=== PATIENT | female | born 1970 | race Caucasian/White ===

== ENCOUNTER → 2016-08-05 | Outpatient (CLI) | payer OTHER ==
--- NOTE | 2016-08-06 13:01 | RAD ---
DATE: 08/05/2016 EXAM: DIGITAL SCREEN BILAT W/CAD HISTORY: Routine screening COMPARISON: 06/25/2015 This study was interpreted with the benefit of Computerized Aided Detection (CAD). The breast parenchyma is heterogeneously dense, which could reduce sensitivity of mammography. Breast parenchyma level C. Findings: No new or enlarging breast densities are seen. There is a cluster of microcalcifications at the 6:00 location the right breast, best seen on the current cc view. These were not evident on the previous cc views, however, that could be due to differences in patient positioning. These are partially visualized on the current oblique view. Calcifications were seen in this region on the oblique view of the 06/25/2015 study, but not on prior exams. The intermittent visualization of these calcifications is probably due to their far posterior position. IMPRESSION: Cluster of microcalcifications at the 6:00 location in the right breast as above. Diagnostic mammograms to include magnification and straight mediolateral views are suggested for optimal characterization. BI-RADS CATEGORY: 0 INCOMPLETE: NEEDS ADDITIONAL IMAGING EVALUATION AND/OR PRIOR MAMMOGRAMS FOR COMPARISON. RECOMMENDED FOLLOW-UP: ADD ADDITIONAL IMAGING PQRS compliance statement: Patient information was entered into a reminder system with a target due date for the next mammogram. Mammography is a sensitive method for finding small breast cancers, but it does not detect them all and is not a substitute for careful clinical examination. A negative mammogram does not negate a clinically suspicious finding and should not result in delay in biopsying a clinically suspicious abnormality. "Our facility is accredited by the [employer] Mammography [employer]."
== END | disposition home or self-care (01) ==
LOC: MAMMO 15:28
PROVIDERS: ATTEND Obstetrics & Gynecology
DX: Z12.31 Encounter for screening mammogram for malignant neoplasm of breast (principal)
CPT/HCPCS: G0202; 77067

== ENCOUNTER → 2016-08-18 | Outpatient (CLI) | payer OTHER ==
[~2016-08-18] MED LIST: FLUO40CA2 PO; PRAZ1CAP2 PO; QUET150T PO
--- NOTE | 2016-08-19 10:10 | RAD ---
DATE: 08/18/2016 EXAM: DIGITAL DIAGNOSTIC RT HISTORY: Microcalcifications COMPARISON: 06/25/2015 This study was interpreted with the benefit of Computerized Aided Detection (CAD ). FINDINGS: Breast Density: HETERO The breast parenchyma Is heterogeneously dense, which could reduce sensitivity of mammography. Breast parenchyma level C. Coarse microcalcifications identified in the right mid breast at 6:00 position. These calcifications are more prominent on the CC spot compression views. Some of these calcifications were visualized on the MLO view on 06/25/2015, however On the cc view these were not visualized on the prior exam and appear more prominent on the spot compression cc view. There is questionable minimal increase in microcalcifications. IMPRESSION: Microcalcifications right breast at 6:00 position, suspicious finding . Recommend stereotactic biopsy. BI-RADS CATEGORY: 4 SUSPICIOUS ABNORMALITY-BIOPSY SHOULD BE CONSIDERED RECOMMENDED FOLLOW-UP: Stereotactic guided biopsy PQRS compliance statement: Patient information was entered into a reminder system with a target due date immediate recall for the next mammogram. Mammography is a sensitive method for finding small breast cancers, but it does not detect them all and is not a substitute for careful clinical examination. A negative mammogram does not negate a clinically suspicious finding and should not result in delay in biopsying a clinically suspicious abnormality. "Our facility is accredited by the [employer] Mammography [employer]." MTDD
== END | disposition home or self-care (01) ==
LOC: MAMMO 10:05
PROVIDERS: ATTEND Obstetrics & Gynecology
DX: R92.0 Mammographic microcalcification found on diagnostic imaging of breast (principal)
CPT/HCPCS: G0206; 77065

== ENCOUNTER → 2016-08-20 | Outpatient (CLI) | payer OTHER ==
[~2016-08-20] VITALS: Ht 167.6 cm; Wt 68.9 kg
[~2016-08-20] MED LIST changes: +LIDOCAINE 1% / SOD BICARB 8.4% 20 ML VIAL. IJ ONE; +LIDOCAINE 2%/EPI 1:100,000 20 ML VIAL. IJ ONE
[2016-08-20 12:20] VITALS: BP 146/89
--- NOTE | 2016-08-21 14:57 | PATHOLOGY ---
PATHOLOGY REPORT * * * * * * * * FINAL DIAGNOSIS: Breast "right breast calcification", needle core biopsies: - Papillary lesion consistent with an intraductal papilloma with dystrophic calcification. - Fibrocystic changes with sclerosing adenosis, fibroadenomatous nodule, and cyst formation. - See comment. COMMENT: This case is also reviewed by Dr. Matt Sandy. Since this is a papillary lesion, even though we favor it to be an intraductal papilloma with dystrophic calcification it is advisable to do a lumpectomy as the papillary lesion is fragmented and an entire lesion may not have been biopsied and thus should be examined. REPORT ELECTRONICALLY SIGNED BY: René Shaw M.D. DATE/TIME: 08/21/2016 14:56 * * * * * * * * GROSS PATHOLOGY: Received in formalin labeled "Sherlyn Davis right breast," are multiple needle cores of yellow-burgos fibrofatty tissue measuring 0.8 x 0.8 x 0.4 cm in aggregate dimensions. Also received is a plastic cassette containing multiple cores of yellow-burgos fibrofatty tissue measuring 1.3 x 1.3 x 0.6 cm in aggregate dimensions. The tissue in the cassette is transferred to cassette A1, and the remaining tissue is submitted in its entirety in cassette A2. The cold ischemic time is 9 minutes. The total formalin fixation time is 10 hours and 41 minutes. (SHA; 08/20/16) INITIAL CPT CODE(S): A; 79714 Professional services performed [place] [facility] [address] Technical services performed by [facility] at [address] [place] [address], [facility] [address], [place] [address]. SPECIMEN(S) RECEIVED: A.Right breast calcifications CLINICAL HISTORY: Right breast calcifications PATIENT: SHERLYN DAVIS /AGE: 1101/04/1970 (Age: 46) PATIENT #: [id number] ALT CASE #: SPECIMEN COLLECTION DATE: 08/20/2016 SPECIMEN RECEIVED DATE: 08/20/2016 [facility] - [address] [place] [address] - PHONE: [phone] * * * END OF REPORT * * *
--- NOTE | 2016-08-22 09:19 | RAD ---
Stereotactic right breast biopsy, 08/20/2016: History: Suspicious microcalcifications Previous mammograms demonstrated a cluster of suspicious microcalcifications at the 6:00 location. Under local anesthesia, aseptic conditions and stereotactic guidance the Hone and Strop biopsy instrument was passed into this region via a medial approach. Multiple 9 gauge vacuum-assisted core samples were obtained. Specimen mammography demonstrated many of the targeted microcalcifications within the specimens. The biopsy instrument was then removed and hemostasis obtained. Two-view postprocedural digital mammograms were then obtained on a separate mammographic unit, to document the marker placement. There are residual microcalcifications at the biopsy site located just superior to the biopsy marker. The patient tolerated the procedure well and left the department in good condition. Note: The subsequent pathology report indicated the presence of fibrocystic change as well as a papillary lesion consistent with an intraductal papilloma. This is considered to be a concordant finding. Pathology has recommended excisional biopsy for further evaluation.
== END | disposition home or self-care (01) ==
LOC: MAMMO 11:39
PROVIDERS: ATTEND Obstetrics & Gynecology
DX: R92.8 Other abnormal and inconclusive findings on diagnostic imaging of breast (principal)
CPT/HCPCS: 19085; 77022; C1713; G0206; J3490; 88305; 77065

== ENCOUNTER → 2016-09-22 | Day surgery (SDC) | payer OTHER ==
[~2016-09-22] VITALS: Ht 167.6 cm; Wt 65.3 kg
[~2016-09-22] MED LIST changes: +ACET500T33 PO; +BUPIVACAINE-EPI 0.5%-1:200000 50 ML VIAL. ONE; +CALC500T54 PO; +DESFLURANE 31 TO 60 MINUTES IH ONE; +HYDROcodone/APAP 5/325MG 1 TAB TABLET PO ONE; +HYDROmorphone 2 MG/ML VIAL IV PRN; +IV RINGERS,LACTATED 1000ML 1,000 ML IV SCH; +LEVE500T56 PO; -LIDOCAINE 1% / SOD BICARB 8.4% 20 ML VIAL. IJ ONE; +LIDOCAINE 1% 1 ML SYRINGE. ID PRN; +LIDOCAINE 2% PF Vial for OR 5 ML VIAL. ONE; -LIDOCAINE 2%/EPI 1:100,000 20 ML VIAL. IJ ONE; +MIDAZOLAM HCL/PF 2 MG/2 ML VIAL. ONE; +MORPHINE SULFATE 2 MG/ML DISP.SYRIN. IV PRN; +MULT1TAB52 PO; +ONDANSETRON PF 4 MG/2 ML VIAL. IV PRN; +ONDANSETRON PF 4 MG/2 ML VIAL. ONE; +PROCHLORPERAZINE 10 MG/2 ML VIAL. IV PRN; +PROPOFOL 20 ML IV ONE; +fentaNYL PF VIAL 100 MCG/2 ML VIAL IV PRN; +fentaNYL PF VIAL 100 MCG/2 ML VIAL ONE
[2016-09-22 08:10] LABS: NEG OBC UR NEG; POS OBC UR POS
--- NOTE | 2016-09-22 09:35 | RAD ---
Right breast needle localization, 09/22/2016: History: Abnormal stereotactic biopsy Preliminary images again reveal the presence of a biopsy marker at the 6:00 location in the right breast with residual microcalcifications lying approximately 1 cm superior to the level of the marker. This area was initially targeted via an inferior approach, however, due to the far posterior location of the marker it could not be satisfactorily visualized via this projection. We therefore switched to a medial approach. Under local anesthesia, aseptic conditions and mammographic guidance the modified Kopan's needle/retention wire was passed into this region. The needle was removed and the final images show that the targeted marker lies directly anterior to the proximal aspect of the thickened portion of the retention wire, approximately 5-6 cm deep to the skin surface. As described above, the residual microcalcifications lie just superior to this marker. The patient tolerated the procedure well and was sent to surgery in good condition.
--- NOTE | 2016-09-22 10:39 | RAD ---
Right specimen mammogram, 09/22/2016: History: Abnormal stereotactic biopsy A single digital mammogram of a surgical specimen from the patient's right breast was obtained. A modified Kopans retention wire is present within the specimen. The hook of the specimen is fractured. The suspicious microcalcifications as well as an adjacent biopsy marker are present in the specimen adjacent to the proximal aspect of the thickened portion of the retention wire, centered at the 5-6/F-G location in the specimen container.
--- NOTE | 2016-09-22 11:04 | OP ---
DATE OF SURGERY: 09/22/2016 PREOPERATIVE DIAGNOSIS: Mammographic changes right breast, status post biopsy showing atypia/ papilloma. POSTOPERATIVE DIAGNOSIS: Mammographic changes right breast, status post biopsy showing atypia/ papilloma. PROCEDURE: Right middle lobe breast biopsy. SURGEON: Juana Barber MD ANESTHESIA: General LMA. ESTIMATED BLOOD LOSS: 20 mL. IV FLUID: 800 mL. INDICATIONS: The patient is a 46-year-old with a previous biopsy shown some papillary changes with recommendation for excisional biopsy. She is brought for same. OPERATIVE REPORT: The patient went to the radiology suite [facility] and underwent localization of her previously placed biopsy marker had some residual calcifications in the right breast at 6 o'clock. She was then brought to the OR, given a general LMA and the right breast was prepped and draped in usual sterile fashion. A 0.5% Marcaine with epinephrine was infiltrated in the skin along the incision line to correspond with the location of the changes. An incision was made and the localization wire delivered into the wound from its medial location. The tissue anterior and superior to the shoulder of the wire which corresponded to the radiographic changes, where sharply excised. The specimen was sent to the Radiology were specimen radiograph confirm the calcifications and marker were present in the specimen. Hemostasis was obtained with cautery. When the correct sponge count was obtained, the breast tissue was approximated with 3-0 Vicryl. The skin was closed with a subcuticular 4-0 Monocryl. Steri-Strips and sterile dressing applied. The patient awakened from her anesthetic and taken to the recovery room in satisfactory condition. JUANA BARBER MD DR: MC/nts JOB#: [id number] / [id number]
--- NOTE | 2016-09-22 11:04 | PDOC ---
BRIEF OPERATIVE NOTE Date: Sep 22, 2016 Pre-Op Diagnosis papillary changes right breast biopsy Post-Op Diagnosis same Procedure Performed needle loc excisional breast biopsy, right Surgeon Elvin Anesthesia Type: General Blood Loss 20cc IV Fluid 800cc Specimens Obtained needle loc specimen Findings specimen contained the biopsy marker and calcifications of concern Complications none OPerative Note Wk # [id number] JUANA BARBER MD Sep 22, 2016 11:03
--- NOTE | 2016-09-22 11:05 | DISCH ---
DISCHARGE INSTRUCTIONS Condition on Discharge Condition on Discharge: Stable Activity After Discharge Activity Instructions for Disc: Activity as tolerated, Avoid exertion Lifting Instructions after Dis: No heavy lifting Driving Instructions after Dis: Do not drive today Diet after Discharge Diet after Discharge: Regular Wound Incision Care Wound/Incision Care: Ice to area for comfort Other wound/incision instructi: june showthursday Follow-Up Follow up with: Elvin next week JUANA BARBER MD Sep 22, 2016 11:05
[2016-09-22 11:45] VITALS: BP 140/90
--- NOTE | 2016-09-24 09:39 | PATHOLOGY ---
PATHOLOGY REPORT * * * * * * * * FINAL DIAGNOSIS: Breast tissue, wire localized right breast biopsy at 6:00: - Intraductal papillomas, with foci of sclerosis and calcifications. - Sclerosing adenosis, multifocal, with focal calcifications. - Proliferative fibrocystic changes with focal florid ductal epithelial hyperplasia. - Fibroadenoma. (JPM:shahriar; 09/23/2016) COMMENT: There is no evidence of malignancy. The case is also examined by Dr. Matt Sandy, who concurs with the diagnoses. (JPM:shahriar; 09/23/2016) REPORT ELECTRONICALLY SIGNED BY: Loco Robbins M.D. DATE/TIME: 09/23/2016 15:36 * * * * * * * * GROSS PATHOLOGY: The specimen is received fresh in a TranSpec specimen container, designated "Sherlyn Davis, right breast" and consists of a rubbery segment of yellow burgos, fibrofatty breast tissue, measuring 4.4 x 3.6 x 0.8 cm in maximum dimensions. There is a metallic wire extending from one edge of the specimen The specimen is accompanied by a specimen radiograph report, which states that the suspicious calcifications are present at the 5-6/F-G level. This area corresponds with the previously mentioned metallic wire, eccentrically located and is inked with red ink. The specimen is removed from the grid. The remaining margins are inked with black ink. The specimen is serially sectioned to reveal a fatty appearing cut surface with multiple areas of burgos white breast tissue throughout. The area of localization is rubbery, but without a grossly recognizable discreet lesion. The specimen is submitted entirely in cassettes A1-A6, with the localized area in cassettes A2-A3. The cold ischemic time is 18 minutes and total fixation time is 12 hours and 53 minutes. (JPM; 09/22/16) INITIAL CPT CODE(S): A; 26383 Professional services performed by [facility] at [facility] [address] [place] [id number] Technical services performed by [facility] at [address] [place] [address], [address], [place] [address]. SPECIMEN(S) RECEIVED: A.Right breast biopsy with needle loc at 6 o'clock CLINICAL HISTORY: Breast mass PATIENT: SHERLYN DAVIS /AGE: 1101/04/1970 (Age: 46) PATIENT #: [id number] ALT CASE #: SPECIMEN COLLECTION DATE: 09/22/2016 SPECIMEN RECEIVED DATE: 09/22/2016 [facility] - [address] [place] [address] - PHONE: [phone] * * * END OF REPORT * * *
== END | disposition home or self-care (01) ==
LOC: MAMMO 07:20
PROVIDERS: ATTEND Surgery
DX: D24.1 Benign neoplasm of right breast (principal); F41.9 Anxiety disorder, unspecified; F32.9 Major depressive disorder, single episode, unspecified; Z86.69 Personal history of other diseases of the nervous system and sense organs; Z72.89 Other problems related to lifestyle
CPT/HCPCS: 19101; 19281; 76098; 81025; C1769; J0690; J2001; J2250; J2405; J2704; J3010; 88307; J7120

== ENCOUNTER → 2017-03-13 | Outpatient (CLI) | payer OTHER | END | disposition home or self-care (01) | LOC: MAMMO 11:52 | DX: N63.10 Unspecified lump in the right breast, unspecified quadrant (principal) | CPT/HCPCS: 76641; 77065 ==

== ENCOUNTER → 2017-06-26 | Outpatient (CLI) | payer OTHER | END | disposition home or self-care (01) | LOC: MAMMO 09:50 | DX: R92.8 Other abnormal and inconclusive findings on diagnostic imaging of breast (principal) | CPT/HCPCS: 76641; 77065 ==

== ENCOUNTER → 2018-01-13 | Outpatient (CLI) | payer OTHER ==
[2016-09-22 11:45] VITALS: BP 140/90
[~2018-01-13] MED LIST changes: -BUPIVACAINE-EPI 0.5%-1:200000 50 ML VIAL. ONE; -DESFLURANE 31 TO 60 MINUTES IH ONE; -HYDROcodone/APAP 5/325MG 1 TAB TABLET PO ONE; -HYDROmorphone 2 MG/ML VIAL IV PRN; -IV RINGERS,LACTATED 1000ML 1,000 ML IV SCH; -LIDOCAINE 1% 1 ML SYRINGE. ID PRN; -LIDOCAINE 2% PF Vial for OR 5 ML VIAL. ONE; -MIDAZOLAM HCL/PF 2 MG/2 ML VIAL. ONE; -MORPHINE SULFATE 2 MG/ML DISP.SYRIN. IV PRN; -ONDANSETRON PF 4 MG/2 ML VIAL. IV PRN; -ONDANSETRON PF 4 MG/2 ML VIAL. ONE; -PROCHLORPERAZINE 10 MG/2 ML VIAL. IV PRN; -PROPOFOL 20 ML IV ONE; -fentaNYL PF VIAL 100 MCG/2 ML VIAL IV PRN; -fentaNYL PF VIAL 100 MCG/2 ML VIAL ONE
--- NOTE | 2018-01-13 16:30 | RAD ---
DATE: 01/13/2018 EXAM: MAMMO COREY RAPHAEL HERNANDEZAT, BREAST RIGHT HISTORY: Previous right breast biopsy which was benign. COMPARISON: 06/26/2017 right diagnostic mammographic exam, 01/05/2014 and 06/25/2015 screening mammographic exams, right breast ultrasound exam 06/26/2017 This study was interpreted with the benefit of Computerized Aided Detection (CAD). Breast Density: HETERO The breast parenchyma is heterogenously dense, which could reduce sensitivity of mammography. Breast parenchyma level C. FINDINGS: Parenchymal distribution is stable. No new mass or suspicious distortion. No suspicious calcification cluster. Limited right breast ultrasound exam was performed. A 10:00 cyst of the right breast measuring 0.7 cm x 0.6 cm x 0.4 cm tall is stable compared to prior exam. Previously seen 4:00 cyst is not seen on the current exam. IMPRESSION: No suspicious findings. 1 year follow-up of the right breast complicated cyst by ultrasound is recommended. BI-RADS CATEGORY: 2 BENIGN FINDING(S) RECOMMENDED FOLLOW-UP: 12M 12 MONTH FOLLOW-UP PQRS compliance statement: Patient information was entered into a reminder system with a target due date in one year for the next mammogram. Mammography is a sensitive method for finding small breast cancers, but it does not detect them all and is not a substitute for careful clinical examination. A negative mammogram does not negate a clinically suspicious finding and should not result in delay in biopsying a clinically suspicious abnormality. "Our facility is accredited by the [employer] Mammography [employer]."
== END | disposition home or self-care (01) ==
LOC: MAMMO 10:22
PROVIDERS: ATTEND Surgery
DX: D24.1 Benign neoplasm of right breast (principal)
CPT/HCPCS: 76641; 77066; G0279; 77062

== ENCOUNTER → 2019-11-24 | Outpatient (CLI) | payer OTHER ==
[2016-09-22 11:45] VITALS: BP 140/90
[~2019-11-24] MED LIST changes: +MULT-445 PO; -MULT1TAB52 PO; -QUET150T PO; +QUET150T2 PO
--- NOTE | 2019-11-25 17:01 | RAD ---
BILATERAL SCREENING MAMMOGRAM, 3-D History: Routine screening. Comparison: 08/05/2016, 01/13/2018. Technique: MLO and CC digital tomosynthesis (3D) images obtained. Radiologist reviewed these images on dedicated workstation. Findings: Breast Tissue Density C : The breasts are heterogeneously dense, which may obscure small masses. There are no dominant masses, suspicious microcalcifications, or architectural distortion. IMPRESSION: No mammographic evidence of malignancy. Recommend routine screening. BI-RADS category 1: Negative. The images were reviewed with computer-aided detection. Patient information is entered into reminder system with a target due date for the next screening mammogram. Mammography is the most sensitive method for finding small breast cancers, but it does not detect them all and is not a substitute for careful clinical examination. A negative mammogram does not negate a clinically suspicious finding and should not result in delay in biopsying a clinically suspicious abnormality. "Our facility is accredited by the [employer] Mammography [employer]." Electronically signed by: Renard Martinez MD (11/25/2019 4:58 PM) [email or web address]
== END | disposition home or self-care (01) ==
LOC: MAMMO 14:48
PROVIDERS: ATTEND Internal Medicine
DX: Z12.31 Encounter for screening mammogram for malignant neoplasm of breast (principal)
CPT/HCPCS: 77063; 77067